=== PATIENT | female | born 1960 | race Caucasian/White ===

== ENCOUNTER 2019-08-24 15:51 | Observation (INO) | payer BC, SELFPAY ==
[2019-08-24] VITALS (8 sets, daily range): BP systolic 124–159; BP diastolic 71–90; PULSE 63–76; RESP 9–20; TEMP 36.1–36.5; O2SAT 95–99; BMI 40.3
--- NOTE | ~2019-08-24 | XR_ITS ---
EXAMINATION: XR chest 2V DATE: 08/24/2019 18:26 INDICATION: Chest pain and shortness of breath TECHNIQUE: PA and lateral views of the chest are obtained. COMPARISON: None available FINDINGS: The lungs are free of acute opacities. There is no pleural effusion or pneumothorax. The ca rdiomediastinal silhouette is normal. There is moderate thoracic spondylosis. Surgical clips in the r ight upper quadrant are likely from prior cholecystectomy. IMPRESSION: 1. No acute cardiopulmonary abnormality. Reviewed, dictated and finalized at location A.
--- NOTE | 2019-08-24 16:12 | ECG_ITS ---
Measurements Intervals [place] Rate: 71 P: 13 [place]: 159 QRS: 5 QRSD: 90 T: 22 QT: 369 QTc: 403 Interpretive Statements SINUS RHYTHM EARLY PRECORDIAL R/S TRANSITION LOW QRS VOLTAGE IN PRECORDIAL LEADS BASELINE ARTIFACT- I, III, AVL BORDERLINE ECG Electronically Signed On 08-24-2019 17:40:11 CDT by Mika Sullivan D.O.
[2019-08-24 16:27] LABS: Basophils Absolute Auto 0.1 K/mm3 (0.0-0.1); Eosinophils Percent Auto 0.2 % (0-4.4); Hematocrit 40.7 % (37.0-47.0); Hemoglobin 13.6 g/dL (12.0-15.0); Immature Granulocyte Absolute 0.02 K/mm3 (0.00-0.031); Immature Granulocyte Percent A 0.3 % (0-0.5); Lymphocytes Absolute Auto 1.05 K/mm3 (0.9-3.2); Lymphocytes Percent Auto 17.7 % (18.3-44.2); Mean Corpuscular HGB Conc 33.4 g/dl (32-36); Mean Corpuscular Hemoglobin 30.8 pg (26-34); Mean Corpuscular Volume 92.3 fl (80-100); Mean Platelet Volume 11.5 fl (7.4-10.4); Monocytes Absolute Auto 0.3 K/mm3 (0.1-0.6); Monocytes Percent Auto 4.4 % (2.6-8.5); Neutrophils Absolute Auto 4.5 K/mm3 (1.3-6.7); Neutrophils Percent Auto 76.4 % (45.5-73.1); Platelet Count Result 216 k/mm3 (150-375); Red Blood Count 4.41 M/mm3 (4.2-5.4); Red Cell Distribution Width 13.1 % (11.5-14.5); White Blood Count 5.9 K/mm3 (4.5-10.0)
[2019-08-24 16:34] LABS: Prothrombin Time 12.7 Seconds (11.1-14.7)
[2019-08-24 16:35] LABS: Partial Thromboplastin Time 23.3 SECONDS (22.3-36.8)
[2019-08-24 16:39] LABS: Blood Urea Nitrogen 21 mg/dL (7-17); Calcium 9.6 mg/dL (8.4-10.2); Carbon Dioxide 22 mmol/L (22-30); Chloride 107 mmol/L (98-107); Estimated CRCL calculation 64 ml/min; Estimated Glomerular Filt Rate 57; Glucose 107 mg/dL (65-105); Potassium 4.7 mmol/L (3.4-5.0); Sodium 136 mmol/L (137-145)
[2019-08-24 16:50] LABS: Troponin I < 0.012 ng/mL (0.000-0.034)
--- NOTE | 2019-08-24 18:31 | ED.GENADULT ---
HPI - General Adult General Chief complaint: Unspecified Stated complaint: HEART ISSUES, FATIGUED Time Seen by Provider: 08/24/19 18:31 History of Present Illness HPI narrative: Patient is a 59 y/o female complaining moderate fatigue and generalized weakness for about 1 week. There is no alleviating or exacerbating factor. She also has some nausea, but no vomiting. She has some intermittent left sided chest pain. She denies any fever or cough. Related Data Home Medications Medication Instructions Recorded Confirmed bupropion HCl 200 mg tablet,12 hr 200 mg PO BID tablet 01/15/19 08/24/19 sustained-release cholecalciferol (vitamin D3) 1,250 50,000 unit PO WEEKLY 01/15/19 08/24/19 mcg (50,000 unit) capsule lisinopril 20 mg tablet 20 mg PO DAILY 01/15/19 08/24/19 prednisone 20 mg tablet 20 mg PO DAILY 01/15/19 08/24/19 azithromycin 250 mg PO DAILY 08/24/19 08/24/19 sertraline 100 mg PO DAILY 08/24/19 08/24/19 Allergies Allergy/AdvReac Type Severity Reaction Status Date / Time Iodinated Contrast Media Allergy Unknown Verified 07/02/19 10:07 ioversol Allergy Unknown Unknown Verified 07/02/19 10:07 Contrast Media Allergy Severe HIVES, SOB Uncoded 07/02/19 10:07 Review of Systems Constitutional: Constitutional: Denies chills, Reports fatigue, Denies fever(s), Denies headache(s) and Reports weakness Eyes: Eyes: Denies blurry vision ENT: Denies headache(s) and Denies neck pain Cardiovascular: Cardiovascular: Reports chest pain and Denies dyspnea Respiratory: Respiratory: Denies cough and Denies dyspnea Gastrointestinal: Gastrointestinal: Denies abdominal pain, Denies diarrhea, Denies nausea and Denies vomiting Genitourinary: Genitourinary: Denies hematuria and Denies dysuria Musculoskeletal: Musculoskeletal: Denies back pain and Denies neck pain Neurologic: Denies headache(s) and Denies weakness PMFSH Past Medical History Medical History Acute non-recurrent maxillary sinusitis Allergic contact dermatitis due to plant Chest pain Chronic anxiety Chronic depression Essential (primary) hypertension Fatigue Fever GERD (gastroesophageal reflux disease) Insomnia Migraine without aura and responsive to treatment ERMELINDA on CPAP Restless legs syndrome Seasonal allergic rhinitis Tension headache, chronic Viral syndrome Vitamin D deficiency, unspecified Social History Social History Smoking status: Never smoker Alcohol intake: current Exam Const: General: no acute distress and well developed Orientation/consciousness: oriented to person, oriented to place, oriented to time and patient oriented x3 HENMT: Head: normocephalic Ears: external ears normal General nose exam: Normal external nose present Eyes: General: appearance normal, both eyes and all related structures Conjunctivae: conjunctivae normal Neck: Neck: normal visual inspection and full ROM Chest: Chest palpation & inspection: normal inspection of the chest and no tenderness Resp: Effort & Inspection: normal respiratory effort Auscultation: clear to auscultation bilaterally Cardio: Rate: regular rate Rhythm: regular rhythm GI: GI Palp: No abdominal tenderness and Yes Soft to palpation Skin: General skin exam: normal color and turgor normal Neuro: General: oriented to person, oriented to place, oriented to time and patient oriented x3 Cognition (Neuro): normal cognition Extrem: General: normal to inspection, full ROM and no pedal edema Psych: Appearance: grossly normal Mental Status: mental status grossly normal Affect: normal affect Course Consultations Consultation #1: Discussed with Dr. Gallardo (PCP), who recommends admitting patient for observation. Date: 08/24/19 Time: 19:37 Consultation #2: Discussed with Dr. Calero, who agrees to admit. Date: 08/24/19 Time: 20:25 Vital Signs Vital signs: Vital Signs Tempera
[2019-08-24 19:58] LABS: Troponin I < 0.012 ng/mL (0.000-0.034)
--- NOTE | 2019-08-24 22:19 | ADMGEN ---
This patient, Marilynn Chatterjee, was admitted to IMU Room 210-01 [id number]. Patient/family oriented to hospital policies and general routines including ID bracelet, bed and alarms, visiting hours, pain management, procedures, bathroom and other care routines, personal items, smoking policy, room service/diet, and visiting hours. Valuables list has been completed. Information on how to activate the Rapid Response Team has been discussed. Patient/Family are encouraged to report perceived risks to care and to ask questions if they do not understand what they are told or what they should do.
[2019-08-24 22:32] LABS: Troponin I < 0.012 ng/mL (0.000-0.034)
[2019-08-25] VITALS (7 sets, daily range): BP systolic 109–122; BP diastolic 55–77; PULSE 55–72; RESP 14–18; TEMP 36.4–36.6; O2SAT 96–98
--- NOTE | 2019-08-25 07:10 | PC.NURSE ---
DISPOSAL MAN STATUS PT. TRANSFERRED TO [facility]AL [facility] 6 VIA WC AT THIS TIME FROM IMU 210. REPORT RECEIVED FROM DERRELL WRIGHT IN IMU. PT IS A&OX3, DENIES CP OR SOB. STEADY GAIT. PLACED ON MONITOR IN [facility] 6. MONITOR SR. VSS. ORIENTED TO ROOM AND PLAN OF CARE. WILL CONTINUE TO MONITOR.
--- NOTE | 2019-08-25 09:52 | ECG_ITS ---
Measurements Intervals [place] Rate: 64 P: 17 [place]: 168 QRS: 18 QRSD: 88 T: 35 QT: 398 QTc: 412 Interpretive Statements SINUS RHYTHM EARLY PRECORDIAL R/S TRANSITION BORDERLINE ECG Electronically Signed On 08-25-2019 10:44:45 CDT by Mika Sullivan D.O.
--- NOTE | 2019-08-25 10:10 | PC.NURSE ---
DR. CAN HERE TO SEE PT. UPDATED ON PT. C/O L. UPPER CHEST DULL THROBBING PAIN OF 6-7/10 RADIATING TO BACK AND L. UPPER SHOULDER AREA. EKG COMPLETED, STAT TROPONIN SENT TO LAB. PT W/ VSS, SKIN WARM, DRY, PINK. NO SWEATING, NAUSEA. WILL MONITOR.
--- NOTE | 2019-08-25 10:17 | PM.IMHP ---
H&P: HPI History of Present Illness Chief complaint: chest pain Narrative: Marilynn Chatterjee is a 59 year old female with h/o HTN and anxiety who presented with fatigue and chest pain Patient was seen yesterday at her PCP office when was complaining of lack of energy and feeling extremely fatigued. She has been having upper resp/flu like symptoms for few days with low grade fever including last night. She was sent to ER for further evaluation. She was tested for COVID which was negative. She also reported chest pain that is dull and localized to one spot in her chest on the left side with no radiation. She has separate left shoulder pain that she had for long time. SHe had stress test lonig time ago prior to gallbalder surgery. She quit smoking 10 years ago. Review of Systems Review of Systems: All systems reviewed & are unremarkable except as noted in HPI and below Constitutional: Constitutional: Denies fatigue and Denies headache(s) Eyes: Eyes: Denies blurry vision ENT: Reports Normal hearing present and Denies headache(s) Cardiovascular: Cardiovascular: Denies chest pain, Denies diaphoresis, Denies pedal edema, Denies leg edema, Denies lightheadedness, Denies palpitations and Denies dyspnea Respiratory: Respiratory: Denies cough and Denies dyspnea Gastrointestinal: Gastrointestinal: Denies abdominal pain Musculoskeletal: Musculoskeletal: Denies back pain Neurologic: Reports Normal hearing present and Denies headache(s) Psychiatric: Psychiatric: Denies anxiety Endocrine: Endocrine: Denies fatigue and Denies palpitations PMFSH Past Medical History Medical History Acute non-recurrent maxillary sinusitis Allergic contact dermatitis due to plant Chest pain Chronic anxiety Chronic depression Essential (primary) hypertension Fatigue Fever GERD (gastroesophageal reflux disease) Insomnia Migraine without aura and responsive to treatment ERMELINDA on CPAP Restless legs syndrome Seasonal allergic rhinitis Tension headache, chronic Viral syndrome Vitamin D deficiency, unspecified Social History Social History Smoking packs per day: 0.5 Smoking cigarettes per day: 10.0 Years smoked: 25 Smoking pack-years: 12.50 Smoking status: Former smoker Alcohol intake: current Drinks per week: 1 Substance use: never Gender identity (if verbalized by the patient): Female Spiritual care concerns: No Meds Home Medications and Allergies Home Medications Medication Instructions Recorded Confirmed Type bupropion HCl 200 mg tablet,12 hr 200 mg PO BID tablet 01/15/19 08/24/19 History sustained-release cholecalciferol (vitamin D3) 1,250 50,000 unit PO WEEKLY 01/15/19 08/24/19 History mcg (50,000 unit) capsule lisinopril 20 mg tablet 20 mg PO DAILY 01/15/19 08/24/19 History alprazolam 0.25 mg tablet 0.25 mg PO TID PRN #90 tablet 05/25/19 08/24/19 Rx azithromycin 250 mg PO DAILY 08/24/19 08/24/19 History prednisone 10 mg PO DAILY 08/24/19 08/24/19 History sertraline 100 mg PO DAILY 08/24/19 08/24/19 History Allergies Allergy/AdvReac Type Severity Reaction Status Date / Time Iodinated Contrast Media Allergy Unknown Verified 07/02/19 10:07 ioversol Allergy Unknown Unknown Verified 07/02/19 10:07 Contrast Media Allergy Severe HIVES, SOB Uncoded 07/02/19 10:07 Vital Signs Vital Signs - 24 hr 08/24/19 16:08 08/24/19 17:40 08/24/19 18:41 Temperature 36.1 C L Pulse Rate 73 76 Respiratory Rate 16 Blood Pressure 132/90 Pulse Oximetry 98 99 08/24/19 19:01 08/24/19 20:41 08/24/19 20:46 Temperature Pulse Rate 68 71 75 Respiratory Rate 12 12 19 Blood Pressure 124/78 150/89 H 140/77 Pulse Oximetry 95 99 08/24/19 21:01 08/24/19 22:00 08/25/19 00:00 Temperature 36.5 C Pulse Rate 63 71 72 Respiratory Rate 9 L 20 Blood Pressure 159/82 H 138/71 Pulse Oximetry 96 9
--- NOTE | 2019-08-25 10:25 | PM.DS ---
DS: Admitting Diagnosis Admitting Diagnosis Admitting Diagnosis: Chest pain, unspecified DS: Discharge Diagnosis Discharge Diagnosis (1) Chest pain: Qualifiers: Chest pain type: unspecified Qualified Code(s): R07.9 - Chest pain, unspecified Code(s): R07.9 - Chest pain, unspecified Status: Acute Assessment and Plan: 59 y/o with h/o anxiety, HTM, ex smoker quit 10 years ago who presented with fatigue and chest pain in the setting of upper respiratory infection and low grade fever Chest pain is atypical for angina She has ruled out for AR by EKG and troponin that has been negative X3 She is stable for discharge from cardiac standpoint. Will arrange for follow up and plan stress testing in out patient setting once she recovers from the viral illness and once her symptoms of fatigue and cough improve She prefers to stay local. Will arrange for follow up with Dr Calero in [place] office. (2) Viral syndrome: Code(s): B34.9 - Viral infection, unspecified Status: Acute Assessment and Plan: on Zpac per PCP. Negative CPR for COVID (3) Essential (primary) hypertension: Code(s): I10 - Essential (primary) hypertension Status: Acute Assessment and Plan: Continue Lisinopril as at home. DS: Summary Time Spent with Patient Time attestation: Total time spent providing and/or coordinating discharge services: Exam Const: General: no acute distress Eyes: Sclera: sclerae normal Neck: Neck: no JVD Carotids: no bruits Resp: Effort & Inspection: normal respiratory effort Auscultation: clear to auscultation bilaterally Cardio: Rate: regular rate and not tachycardic Rhythm: regular rhythm Heart sounds: no gallops, no murmurs and no rubs Skin: General skin exam: normal color Neuro: Cranial nerves: Yes Normal hearing present Speech: normal speech Extrem: General: normal to inspection and no edema Psych: Affect: normal affect DS: Data Data Completed and Pending Labs on day of discharge: Labs from last 24 hours 08/25/19 08/24/19 08/24/19 10:06 22:02 19:27 WBC RBC Hgb Hct MCV MCH MCHC RDW Plt Count MPV Immature Gran % (Auto) Neut % (Auto) Lymph % (Auto) Taylor % (Auto) Eos % (Auto) Baso % (Auto) Lymph # (Auto) Taylor # (Auto) Eos # (Auto) Baso # (Auto) Abs Immat Gran (auto) Absolute Neuts (auto) Absolute Nucleated RBC Nucleated RBC % PT INR APTT Sodium Potassium Chloride Carbon Dioxide BUN Creatinine Estim Creat Clear Calc Estimated GFR Glucose Calcium Troponin I Pending < 0.012 < 0.012 TSH 08/24/19 08/24/19 08/24/19 16:18 16:18 16:18 WBC RBC Hgb Hct MCV MCH MCHC RDW Plt Count MPV Immature Gran % (Auto) Neut % (Auto) Lymph % (Auto) Taylor % (Auto) Eos % (Auto) Baso % (Auto) Lymph # (Auto) Taylor # (Auto) Eos # (Auto) Baso # (Auto) Abs Immat Gran (auto) Absolute Neuts (auto) Absolute Nucleated RBC Nucleated RBC % PT 12.7 INR 1.0 APTT 23.3 Sodium 136 L Potassium 4.7 Chloride 107 Carbon Dioxide 22 BUN 21 H Creatinine 1.00 Estim Creat Clear Calc 64 Estimated GFR 57 L Glucose 107 H Calcium 9.6 Troponin I < 0.012 TSH 1.220 08/24/19 16:18 WBC 5.9 RBC 4.41 Hgb 13.6 Hct 40.7 MCV 92.3 MCH 30.8 MCHC 33.4 RDW 13.1 Plt Count 216 MPV 11.5 H Immature Gran % (Auto) 0.3 Neut % (Auto) 76.4 H Lymph % (Auto) 17.7 L Taylor % (Auto) 4.4 Eos % (Auto) 0.2 Baso % (Auto) 1.0 Lymph # (Auto) 1.05 Taylor # (Auto) 0.3 Eos # (Auto) 0.0 Baso # (Auto) 0.1 Abs Immat Gran (auto) 0.02 Absolute Neuts (auto) 4.5 Absolute Nucleated RBC 0.0 Nucleated RBC % 0.0 PT INR APTT Sodium Potassium Chloride Carbon Dioxide BUN Creatinine Estim Creat Clear Ca
[2019-08-25 10:36] LABS: Troponin I < 0.012 ng/mL (0.000-0.034)
== END 2019-08-25 11:43 | disposition home or self-care (01) ==
LOC: ANHED 20:39 → ANHIMU 22:09 → ANHCPC 08-25 10:27 → ANHIMU 08-27 08:53
PROVIDERS: Emergency Medicine; Admitting Provider Specialist; Emergency Provider Emergency Medicine; PCP Family Medicine; Visit Provider Internal Medicine
DX: R07.9 Chest pain, unspecified (principal); B34.9 Viral infection, unspecified; R53.1 Weakness; G47.33 Obstructive sleep apnea (adult) (pediatric); I10 Essential (primary) hypertension; K21.9 Gastro-esophageal reflux disease without esophagitis; Z87.891 Personal history of nicotine dependence
CPT/HCPCS: 36415; 71046; 80048; 84443; 84484; 85025; 85610; 85730; 93005; 99285; G0378

== ENCOUNTER 2019-09-01 10:55 | Outpatient (CLI) | payer BC, SELFPAY ==
[2019-09-01 11:50] LABS: Basophils Absolute Auto 0.1 K/mm3 (0.0-0.1); Basophils Percent Auto 1.4 % (0.2-1.2); Eosinophils Absolute Auto 0.2 K/mm3 (0-0.3); Eosinophils Percent Auto 4.7 % (0-4.4); Hematocrit 42.6 % (37.0-47.0); Hemoglobin 14.1 g/dL (12.0-15.0); Immature Granulocyte Absolute 0.01 K/mm3 (0.00-0.031); Immature Granulocyte Percent A 0.2 % (0-0.5); Lymphocytes Absolute Auto 1.18 K/mm3 (0.9-3.2); Lymphocytes Percent Auto 27.8 % (18.3-44.2); Mean Corpuscular HGB Conc 33.1 g/dl (32-36); Mean Corpuscular Hemoglobin 30.8 pg (26-34); Mean Platelet Volume 11.8 fl (7.4-10.4); Monocytes Absolute Auto 0.3 K/mm3 (0.1-0.6); Monocytes Percent Auto 7.3 % (2.6-8.5); Neutrophils Absolute Auto 2.5 K/mm3 (1.3-6.7); Neutrophils Percent Auto 58.6 % (45.5-73.1); Platelet Count Result 231 k/mm3 (150-375); Red Blood Count 4.58 M/mm3 (4.2-5.4); Red Cell Distribution Width 13.1 % (11.5-14.5); White Blood Count 4.2 K/mm3 (4.5-10.0)
[2019-09-01 11:58] LABS: Alanine Aminotransferase 25 U/L (4-35); Albumin Level 4.1 g/dL (3.5-5.1); Alkaline Phosphatase 61 U/L (38-126); Amylase 79 U/L (30-110); Aspartate Amino Transferase 24 U/L (14-36); Bilirubin,Total 0.4 mg/dL (0.2-1.3); Blood Urea Nitrogen 15 mg/dL (7-17); Calcium 9.4 mg/dL (8.4-10.2); Carbon Dioxide 27 mmol/L (22-30); Chloride 104 mmol/L (98-107); Estimated Glomerular Filt Rate 57; Glucose 141 mg/dL (65-105); Lipase 50 U/L (23-300); Potassium 4.3 mmol/L (3.4-5.0); Sodium 137 mmol/L (137-145)
[2019-09-01 12:47] LABS: Hepatitis B Surface Antigen Negative (Negative)
[2019-09-01 12:53] LABS: HAV RESULT Negative (Negative); Hepatitis B Core IgM Result Negative (Negative)
[2019-09-01 13:05] LABS: Hepatitis C Virus Antibody Negative (Negative)
== END 2019-09-01 10:56 | disposition home or self-care (01) ==
PROVIDERS: PCP Family Medicine; Visit Provider Family Medicine
DX: R10.9 Unspecified abdominal pain (principal)
CPT/HCPCS: 36415; 80053; 80074; 82150; 83690; 85025

== ENCOUNTER 2019-09-08 15:37 | Outpatient (CLI) | payer BC, SELFPAY ==
--- NOTE | ~2019-09-08 | CT_ITS ---
EXAMINATION: CT abdomen pelvis wo con DATE: 09/08/2019 16:11 INDICATION: Abdominal pain. TECHNIQUE: Computed tomography (CT) of the abdomen and pelvis was performed without intravenous contr ast. The dose-length product was 1304.48 mGy-cm. Automated exposure control and iterative reconstruct ion technique were employed. COMPARISON: CT dated 06/19/2013 FINDINGS: Lung bases are unremarkable. No significant pleural or pericardial effusion. Heart size is normal. Stable bilateral adrenal adenomas. Fatty infiltration of the liver. The spleen, pancreas, kid neys are unremarkable. There are cholecystectomy clips. The spleen, pancreas and kidneys are unremark able. Nonobstructive bowel gas pattern. Normal appendix. Colonic diverticulosis without evidence for diverticulitis. No abnormal pelvic masses or fluid collections. Uterus is surgically absent. Bladder is unremarkable. No significant vascular abnormality. No lymphadenopathy. Mild lower thoracic and lum bar spondylosis. IMPRESSION: 1. No acute abdominal abnormality. 2: Stable bilateral adrenal adenomas. 3: Hepatic steatosis. Reviewed, dictated and finalized at location A.
--- NOTE | ~2019-09-08 | CT_ITS ---
EXAMINATION: CT chest high resolution wo nj DATE: 09/08/2019 16:10 INDICATION: Chest and abdominal pain TECHNIQUE: Computed tomography (CT) of the chest was performed without intravenous contrast. The dose -length product was 571.20 mGy-cm. Automated exposure control and iterative reconstruction technique were employed. COMPARISON: None FINDINGS: Mild atherosclerosis without aneurysm. No thoracic lymphadenopathy. Thyroid gland is unrema rkable. Heart size is normal. No significant pleural or pericardial effusion. There are bilateral adr enal adenomas. There is right upper lobe atelectasis/scarring. There is left lower lobe atelectasis. No focal pneumonia. Mild emphysema. No pneumothorax. No endobronchial lesions. Mild thoracic spondylo sis with dextrocurvature of the thoracic spine. IMPRESSION: 1. No acute cardiopulmonary disease. 2: Linear opacities right upper and left lower lobes, most likely atelectasis/scarring. Reviewed, dictated and finalized at location A. IMPRESSION: 1. No acute cardiopulmonary disease. 2: Linear opacities right upper and left lower lobes, most likely atelectasis/ scarring.
== END 2019-09-08 15:38 | disposition home or self-care (01) ==
LOC: ANHIMG 15:38
PROVIDERS: PCP Family Medicine; Visit Provider Family Medicine
DX: R07.9 Chest pain, unspecified (principal); R63.4 Abnormal weight loss; R10.9 Unspecified abdominal pain; R91.8 Other nonspecific abnormal finding of lung field; D35.02 Benign neoplasm of left adrenal gland; D35.01 Benign neoplasm of right adrenal gland; K76.0 Fatty (change of) liver, not elsewhere classified
CPT/HCPCS: 71250; 74176

== ENCOUNTER 2019-09-22 00:56 | Outpatient (CLI) | payer BC, SELFPAY ==
[2019-09-22 19:25] LABS: SARS-CoV-2 RNA PCR Negative
== END 2019-09-22 00:57 | disposition home or self-care (01) ==
LOC: ANHCOVIDDT 00:56
PROVIDERS: PCP Family Medicine; Visit Provider Specialist
DX: Z01.812 Encounter for preprocedural laboratory examination (principal); Z11.59 Encounter for screening for other viral diseases
CPT/HCPCS: 87635; C9803; U0003

== ENCOUNTER 2019-09-24 05:29 | Day surgery (SDC) | payer BC, SELFPAY ==
[2019-09-23 13:43] VITALS: BMI 39.3
[2019-09-24] VITALS (8 sets, daily range): BP systolic 99–126; BP diastolic 66–87; PULSE 76–90; RESP 10–16; TEMP 36.9–37.1; O2SAT 93–97
[2019-09-24 12:46] LABS: Basophils Absolute Auto 0.1 K/mm3 (0.0-0.1); Basophils Percent Auto 0.6 % (0.2-1.2); Eosinophils Percent Auto 0.3 % (0-4.4); Hemoglobin 13.2 g/dL (12.0-15.0); Immature Granulocyte Absolute 0.06 K/mm3 (0.00-0.031); Immature Granulocyte Percent A 0.7 % (0-0.5); Lymphocytes Absolute Auto 0.95 K/mm3 (0.9-3.2); Lymphocytes Percent Auto 10.7 % (18.3-44.2); Mean Corpuscular Volume 93.9 fl (80-100); Mean Platelet Volume 11.3 fl (7.4-10.4); Monocytes Absolute Auto 0.3 K/mm3 (0.1-0.6); Monocytes Percent Auto 3.8 % (2.6-8.5); Neutrophils Absolute Auto 7.5 K/mm3 (1.3-6.7); Neutrophils Percent Auto 83.9 % (45.5-73.1); Platelet Count Result 239 k/mm3 (150-375); Red Blood Count 4.26 M/mm3 (4.2-5.4); Red Cell Distribution Width 13.2 % (11.5-14.5); White Blood Count 8.9 K/mm3 (4.5-10.0)
--- NOTE | 2019-09-24 12:48 | SUR.PREOP ---
Patient arrived to [facility] ambulatory from registration. Patient verified allergy to contrast. Final dose of benadryl and prednisone taken by patient upon arrival to [facility]. Patient states she has taken previous doses as ordered at home.
[2019-09-24 12:57] LABS: Anion Gap 11.8 mmol/L (7-16); Blood Urea Nitrogen 20 mg/dL (7-17); Carbon Dioxide 24 mmol/L (22-30); Chloride 107 mmol/L (98-107); Estimated CRCL calculation 58 ml/min; Estimated Glomerular Filt Rate 51; Glucose 107 mg/dL (65-105); Potassium 4.8 mmol/L (3.4-5.0); Sodium 138 mmol/L (137-145)
[2019-09-24 13:03] LABS: INR 1.1; Prothrombin Time 13.4 Seconds (11.1-14.7)
--- NOTE | 2019-09-24 13:18 | PM.IMHP ---
H&P: HPI History of Present Illness Chief complaint: Chest Pain Narrative: Marilynn Chatterjee is a 59 year old female With history of hypertension, history of dyslipidemia was in the hospital with chest pain she had a stress test as an outpatient which showed significant chest pain with exertion but her nuclear scan was unremarkable. Due to recurrent episode of chest pain she was at that time sent to the hospital cardiac enzymes are negative, and CT was negative for PE. She continued to have chest pain more with exertion, she will be admitted to the hospital for elective cardiac catheterization for definitive diagnosis of coronary disease [facility] Past Medical History Medical History (Updated 08/31/19 @ 11:10 by Tony Gallardo MD) Abdominal pain Acute non-recurrent maxillary sinusitis Allergic contact dermatitis due to plant Chest pain Chronic anxiety Chronic depression Essential (primary) hypertension Fatigue Fever GERD (gastroesophageal reflux disease) Insomnia Migraine without aura and responsive to treatment ERMELINDA on CPAP Restless legs syndrome Seasonal allergic rhinitis Tension headache, chronic Viral syndrome Vitamin D deficiency, unspecified Weight loss, non-intentional Social History Social History Smoking packs per day: 0.5 Smoking cigarettes per day: 10.0 Years smoked: 20 Smoking pack-years: 10.00 Smoking status: Former smoker Tobacco type: cigarettes Second hand tobacco smoke exposure: No Smoking end date: 03/04/09 Alcohol intake: current Drinks per week: 1 Substance use: never Substance use type: does not use Living arrangements: alone Gender identity (if verbalized by the patient): Female Spiritual care concerns: No Meds Home Medications and Allergies Home Medications Medication Instructions Recorded Confirmed Type bupropion HCl 200 mg tablet,12 hr 200 mg PO BID tablet 01/15/19 09/23/19 History sustained-release cholecalciferol (vitamin D3) 1,250 50,000 unit PO WEEKLY 01/15/19 09/23/19 History mcg (50,000 unit) capsule lisinopril 20 mg tablet 20 mg PO DAILY 01/15/19 09/23/19 History alprazolam 0.25 mg tablet 0.25 mg PO TID PRN #90 tablet 05/25/19 09/23/19 Rx prednisone 10 mg PO DAILY 08/24/19 09/23/19 History sertraline 100 mg PO DAILY 08/24/19 09/23/19 History indomethacin 25 mg PO DAILY 09/23/19 09/23/19 History pantoprazole 40 mg PO DAILY 09/23/19 09/23/19 History simvastatin 20 mg PO DAILY 09/23/19 09/23/19 History Allergies Allergy/AdvReac Type Severity Reaction Status Date / Time Iodinated Contrast Media Allergy Unknown Verified 07/02/19 10:07 ioversol Allergy Unknown Unknown Verified 07/02/19 10:07 Contrast Media Allergy Severe HIVES, SOB Uncoded 07/02/19 10:07 Vital Signs Vital Signs - 24 hr 09/24/19 12:38 Temperature 36.9 C Pulse Rate 90 Respiratory Rate 13 Blood Pressure 126/87 Pulse Oximetry 97 Exam Narrative: Exam Narrative: Awake alert oriented x3 not in acute distress Neck is supple no obvious JVD, no carotid bruit Chest: Good air entry bilaterally, lungs are clear to auscultation and percussion bilaterally Cardiovascular: Regular rate and rhythm, 2/6 systolic murmur noted left sternal border Abdomen: Soft nontender bowel sounds positive Extremities: No edema has good pulses distally bilaterally H&P: Results Labs Labs: Short CBC 09/24/19 Range/Units 12:23 WBC 8.9 (4.5-10.0) K/mm3 Hgb 13.2 (12.0-15.0) g/dL Hct 40.0 (37.0-47.0) % Plt Count 239 (150-375) k/mm3 [facility] 09/24/19 12:23 Sodium 138 Potassium 4.8 Chloride 107 Carbon Dioxide 24 BUN 20 H Creatinine 1.10 H Glucose 107 H Calcium 9.0 Assessment and Plan Assessment and plan (1) Chest pain: Qualifiers: Chest pain type: unspecified Qualified Code(s): R07.9 - Chest pain, unspecified Code(s): R07.9 - Chest pain, unspecified Status: Acute
--- NOTE | 2019-09-24 13:20 | WPDMODSED ---
Moderate Sedation Note-Pt Data Patient Data Allergies Allergy/AdvReac Type Severity Reaction Status Date / Time Iodinated Contrast Media Allergy Unknown Verified 07/02/19 10:07 ioversol Allergy Unknown Unknown Verified 07/02/19 10:07 Contrast Media Allergy Severe HIVES, SOB Uncoded 07/02/19 10:07 Home Medications Medication Instructions Recorded Confirmed Type bupropion HCl 200 mg tablet,12 hr 200 mg PO BID tablet 01/15/19 09/23/19 History sustained-release cholecalciferol (vitamin D3) 1,250 50,000 unit PO WEEKLY 01/15/19 09/23/19 History mcg (50,000 unit) capsule lisinopril 20 mg tablet 20 mg PO DAILY 01/15/19 09/23/19 History alprazolam 0.25 mg tablet 0.25 mg PO TID PRN #90 tablet 05/25/19 09/23/19 Rx prednisone 10 mg PO DAILY 08/24/19 09/23/19 History sertraline 100 mg PO DAILY 08/24/19 09/23/19 History indomethacin 25 mg PO DAILY 09/23/19 09/23/19 History pantoprazole 40 mg PO DAILY 09/23/19 09/23/19 History simvastatin 20 mg PO DAILY 09/23/19 09/23/19 History Current Medications: Active Medications Sodium Chloride (Normal Saline Iv) 500 mls @ 100 mls/hr IV CONT .Q5H VIVEK Sedation/Anesthesia: No previous sedation/anesthesia problems (including family history). [facility] Past Medical History Medical History (Updated 08/31/19 @ 11:10 by Tony Gallardo MD) Abdominal pain Acute non-recurrent maxillary sinusitis Allergic contact dermatitis due to plant Chest pain Chronic anxiety Chronic depression Essential (primary) hypertension Fatigue Fever GERD (gastroesophageal reflux disease) Insomnia Migraine without aura and responsive to treatment ERMELINDA on CPAP Restless legs syndrome Seasonal allergic rhinitis Tension headache, chronic Viral syndrome Vitamin D deficiency, unspecified Weight loss, non-intentional Social History Social History Smoking packs per day: 0.5 Smoking cigarettes per day: 10.0 Years smoked: 20 Smoking pack-years: 10.00 Smoking status: Former smoker Tobacco type: cigarettes Second hand tobacco smoke exposure: No Smoking end date: 01/01/10 Alcohol intake: current Drinks per week: 1 Substance use: never Substance use type: does not use Living arrangements: alone Gender identity (if verbalized by the patient): Female Spiritual care concerns: No Mod Sed Physical Exam Physical Exam Pre Procedural Exam: Normal: Appearance, Eyes, Ears, Nose, Neck, Throat, Airway, Lungs, Heart Size, Heart Rate, Heart Rhythm, Neuro Exam, Abdomen, Liver, Kidneys, Spleen, Breasts, Genitalia, Extremities and Skin Hours since solid foods: 8 Hours since liquid intake: 8 Internal Medicine - PN: Obj Da Vital Signs Vital Signs: Vital Signs - 24 hr 09/24/19 12:38 Temperature 36.9 C Pulse Rate 90 Respiratory Rate 13 Blood Pressure 126/87 Pulse Oximetry 97 Meds/Results Medications: Active Medications Generic Name Dose Route Start Last Admin Trade Name Freq PRN Reason Stop Dose Admin Sodium Chloride 500 mls @ 100 mls/hr 09/24/19 06:15 Normal Saline Iv IV CONT .Q5H VIVEK Labs CBC & Chem 7: 09/24/19 12:23 09/24/19 12:23 Labs: Laboratory Results - last 24 hr 09/24/19 09/24/19 09/24/19 12:23 12:23 12:23 WBC 8.9 RBC 4.26 Hgb 13.2 Hct 40.0 MCV 93.9 MCH 31.0 MCHC 33.0 RDW 13.2 Plt Count 239 MPV 11.3 H Immature Gran % (Auto) 0.7 H Neut % (Auto) 83.9 H Lymph % (Auto) 10.7 L Stone % (Auto) 3.8 Eos % (Auto) 0.3 Baso % (Auto) 0.6 Lymph # (Auto) 0.95 Stone # (Auto) 0.3 Eos # (Auto) 0.0 Baso # (Auto) 0.1 Abs Immat Gran (auto) 0.06 H Absolute Neuts (auto) 7.5 H Absolute Nucleated RBC 0.0 Nucleated RBC % 0.0 PT 13.4 INR 1.1 Sodium 138 Potassium 4.8 Chloride 107 Carbon Dioxide 24 Anion Gap 11.8 BUN 20 H Creatinine 1.10 H Estim Creat Clear Calc 58 Estimated G
--- NOTE | 2019-09-24 14:11 | P.PCNCC_ITS ---
Cardiac Cath Procedure Note Date of procedure:: 09/24/19 Performing physician:: Lionel Calero MD Procedure: 1. Left heart catheterization, selective coronary angiogram. 2. Left ventricular angiogram. 3. Conscious sedation. 4. Angio-Seal device for arterial hemostasis Verifying Machine Operator: Dr. Lionel Calero Complications: None. Sedation: Conscious sedation, local anesthesia, using 1 mg of Versed said, 25 mcg of fentanyl, and using 1% lidocaine for local anesthesia. Technique: After informed consent was obtained from patient, was brought to the director of cardiac cath lab, put in the director of cardiac cath lab table, prepped and draped in usual sterile fashion. Five Indian sheath was inserted into the right common femoral artery, through the sheath 5 Indian JL4 catheter inserted, advanced to the left coronary artery, left coronary artery angiogram was obtained. The catheter was exchanged over guidewire into a 5 Indian JR4 catheter, advanced to the right coronary artery, right coronary artery angiogram was obtained. The catheter then was exchanged over guidewire into this 5 Indian pigtail catheter, advanced to left ventricle, left ventricular angiogram was obtained. The catheter then was pulled, the sheath was pulled applying Angio-Seal device for arterial hemostasis. Patient tolerated the procedure no complication, taken fro m the director of cardiac cath lab to his room in stable condition stable vital signs. Hemodynamics: aortic pressure 120/60 . LV pressure 121/00 with LVEDP of 5 mmHg Angiographic findings: Left main: Medium size artery no significant disease or stenosis. Lad medium size artery showed no significant disease or stenosis Left circumflex artery, medium size artery, no significant disease or stenosis. RCA: Dominant vessel, showed no significant disease or stenosis LV: Normal size left ventricle with normal left ventricular systolic function. Summary: Mild coronary artery disease, normal left ventricular systolic function. Recommendation: Maximum medical treatment. Risk factor modification.
--- NOTE | 2019-09-24 18:04 | SUR.PHASEII ---
END PHASE II RECOVERY. DISCHARGE INSTRUCTIONS GIVEN AND REVIEWED W/ PT. ALL QUESTIONS ANSWERED. VOICED UNDERSTANDING. R. GROIN SITE WITHOUT CHANGE. DRESSING C/D/I. DISCHARGED HOME, OUT VIA WC WITH ALL PERSONAL BELONGINGS AND DISCHARGE PACKET TO FRIENDS WAITING CAR. NO DISTRESS NOTED AT TIME OF DISCHARGE. VOICES NO C/O.
== END 2019-09-24 18:04 | disposition home or self-care (01) ==
PROVIDERS: PCP Family Medicine; Visit Provider Specialist
PROC: 4A023N7 Measurement of Cardiac Sampling and Pressure, Left Heart, Percutaneous Approach (ICD-10-PCS; CPT 93452; principal; 2019-09-24 13:30)
DX: R07.9 Chest pain, unspecified (principal); R94.39 Abnormal result of other cardiovascular function study; G47.33 Obstructive sleep apnea (adult) (pediatric); E55.9 Vitamin D deficiency, unspecified; K21.9 Gastro-esophageal reflux disease without esophagitis; F41.8 Other specified anxiety disorders; Z87.891 Personal history of nicotine dependence
CPT/HCPCS: 36415; 80048; 85025; 85610; 93458; C1760; C1887; C1894; G0269; J1644; J2250; J3010; J7040

== ENCOUNTER → 2020-03-05 10:43 | Outpatient (CLI) | payer BC, SELFPAY ==
--- NOTE | ~2020-03-05 | US_ITS ---
EXAMINATION: US carotid duplex BI DATE: 03/05/2020 11:22 INDICATION: Unspecified visual disturbance, vertigo TECHNIQUE: Grayscale, color Doppler, and pulsed Doppler images of the cervical carotid arteries were obtained. The degree of vessel stenosis is placed in one of the following categories: normal, <50%, 5 0-69%, >=70% but less than near-occlusion, near-occlusion, or total occlusion. Note that percent sten osis relative to normal distal artery lumen diameter is indirectly measured from velocity measurement s as described by Madan, et al. Radiology 2003; [id number]:[id number]. COMPARISON: None. FINDINGS: RIGHT: The right common carotid artery (CCA) peak systolic velocity (PSV) is 110 cm/s. The right internal ca rotid artery (ICA) PSV is 83 cm/s. The right ICA end-diastolic velocity (EDV) is 23 cm/s. The right I CA/CCA PSV ratio is 0.7. Grayscale and color Doppler images yield an estimate of less than 50% diamet er reduction from plaque in the ICA. The external carotid artery (ECA) PSV is 111 cm/s. There is ante grade flow in the right vertebral artery. LEFT: The left CCA PSV is 109 cm/s. The left ICA PSV is 116 cm/s. The left ICA EDV is 39 cm/s. The left ICA /CCA PSV ratio is 1.1. Grayscale and color Doppler images yield an estimate of less than 50% diameter reduction from plaque in the ICA. The ECA PSV is 109 cm/s. There is antegrade flow in the left verte bral artery. IMPRESSION: 1. <50% stenosis in the right internal carotid artery. 2. <50% stenosis in the left internal carotid artery. Reviewed, dictated and finalized at location A. SITOLOGIST
== END ==
PROVIDERS: PCP Family Medicine; Visit Provider Family Medicine
DX: H53.9 Unspecified visual disturbance (principal); I65.23 Occlusion and stenosis of bilateral carotid arteries
CPT/HCPCS: 93880

== ENCOUNTER 2020-07-06 09:22 | Outpatient (CLI) | payer BC, SELFPAY ==
--- NOTE | ~2020-07-06 | MM_ITS ---
EXAMINATION: MM screening nigel BI w vahid HISTORY: Screening TECHNIQUE: Craniocaudal and mediolateral oblique 3-D tomosynthesis images were obtained and synthetic 2-D images were generated. CAD analysis was submitted and interpreted. COMPARISON: Comparison to multiple prior studies sequentially, with oldest reviewed study dated 09/22. BREAST PARENCHYMAL COMPOSITION: The breasts are almost entirely fatty. FINDINGS: There is no evidence of suspicious mass, calcification, or architectural distortion to sugg est malignancy in either breast. There has been no suspicious interval change. IMPRESSION: 1. No mammographic evidence of malignancy. 2. Recommend routine screening mammography in one year. BI-RADS Category 1: Negative Reviewed, dictated and finalized at location A.
== END 2020-07-06 09:23 | disposition home or self-care (01) ==
PROVIDERS: PCP Family Medicine; Visit Provider Obstetrics & Gynecology
DX: Z12.31 Encounter for screening mammogram for malignant neoplasm of breast (principal)
CPT/HCPCS: 77063; 77067

== ENCOUNTER 2023-01-30 12:33 | Outpatient (CLI) | payer OTHER, SELFPAY ==
--- NOTE | ~2023-01-30 | XR_ITS ---
Left Knee Technique: AP, lateral, and sunrise views were obtained. Clinical History: Pain Findings: No fracture or dislocation is seen. Osseous alignment is anatomic. Minimal degenerative spu rring is noted. Soft tissues are unremarkable. No joint effusion is seen. Impression: Minimal degenerative spurring. Reviewed, dictated and finalized at [facility]. FICIAL FLOWERS STARCHER Impression: Minimal degenerative spurring.
--- NOTE | ~2023-01-30 | XR_ITS ---
Lumbosacral Spine: AP and lateral views Clinical History: Pain Findings: The normal lordotic curve is maintained. The vertebral bodies and posterior elements are i ntact. The intervertebral disc spaces are preserved. Kzck-uv-kumlpqur facet joint degenerative cage es are present throughout the lumbar spine. The sacroiliac joints are normally outlined. Impression: Ookd-ig-rqckdsqa facet arthropathy throughout the lumbar spine. Reviewed, dictated and finalized at location M. D PROPELLANT PROCESSOR Impression: Cogk-wr-qxulvsyb facet arthropathy throughout the lumbar spine.
== END 2023-01-30 12:34 | disposition home or self-care (01) ==
PROVIDERS: PCP Family Medicine; Visit Provider Family Medicine
DX: M25.562 Pain in left knee (principal); G89.29 Other chronic pain; M54.50 Low back pain, unspecified
CPT/HCPCS: 72110; 73564

== ENCOUNTER 2023-04-02 01:25 | Day surgery (SDC) | payer OTHER, SELFPAY ==
[2023-03-06 11:23] VITALS: BMI 37.8
--- NOTE | 2023-03-29 12:38 | SUR.PREOP ---
Patient called regarding upcoming procedure. Reviewed preop instructions, appointment times, and procedure prep.
[2023-04-02 10:31] VITALS: BP 99/55; PULSE 78; RESP 18; TEMP 36.3; O2SAT 97
[2023-04-02] MEDS: LACTATED RINGERS 1,000 ML 150 ML IV CONT (10:46)
--- NOTE | 2023-04-02 11:01 | WPDANESEPPF ---
Anes - Initial Pre Proc Eval Procedure: Operation Date: 04/02/23 11:30 Proposed Procedures p Screening Colonoscopy - Rhoit Umanzor MD Date/Time: 04/02/23 11:01 Surgeon: Rohit Umanzor MD Pre Op Diagnosis: neoplasm screening Patient Data Age: 63 Gender: F Height: 1.63 m Weight: 102.4 kg Last Vital Signs Temp 97.4 F L 04/02/23 10:31 Pulse 78 04/02/23 10:31 Resp 18 04/02/23 10:31 BP 99/55 L 04/02/23 10:31 Pulse Ox 97 04/02/23 10:31 O2 Del Method Room Air 04/02/23 10:31 Allergies Allergy/AdvReac Type Severity Reaction Status Date / Time Iodinated Contrast Media Allergy Unknown Unknown Verified 04/02/23 10:30 ioversol Allergy Unknown Unknown Verified 04/02/23 10:30 Contrast Media Allergy Severe HIVES, SOB Uncoded 04/02/23 10:30 Home Medications Medication Instructions Recorded Confirmed Type cyanocobalamin (vitamin B-12) 1,000 mcg PO DAILY 06/15/20 03/06/23 History 1,000 mcg tablet alprazolam 0.25 mg tablet (Xanax) 0.25 mg PO TID PRN anxiety #90 tabs 06/22/20 03/06/23 Rx medical cannabis See Rx Instructions .Route .COMPLEX 01/16/22 03/06/23 History aripiprazole 5 mg tablet (Abilify) 5 mg PO DAILY #90 tabs 05/31/22 03/06/23 Rx bupropion HCl 200 mg tablet,12 hr 200 mg PO BID #180 tabs 05/31/22 03/06/23 Rx sustained-release (Wellbutrin SR) lisinopril 20 mg tablet 20 mg PO DAILY #90 tabs 05/31/22 03/06/23 Rx cetirizine 10 mg tablet (Zyrtec) 10 mg PO DAILY PRN allergy 09/10/22 03/06/23 Rx symptoms #90 tabs cholecalciferol (vitamin D3) 1,250 50,000 unit PO WEEKLY #12 caps 01/30/23 03/06/23 Rx mcg (50,000 unit) capsule fluticasone propionate 50 1 spray intranasal BID #16 grams 01/30/23 03/06/23 Rx mcg/actuation nasal spray,suspension (Flonase Allergy Relief) omeprazole 20 mg capsule,delayed 20 mg PO DAILY #90 caps 01/30/23 03/06/23 Rx release sertraline 100 mg tablet 50 mg PO . Q.h.s. #90 tabs 01/30/23 03/06/23 Rx Patient hx anesthesia problems: none Family hx anesthesia problems: none Results Review: All pre-operative results and documents have been reviewed as part of the pre-operative evaluation. [facility] Past Medical History Medical History (Updated 03/27/23 @ 08:25 by Vikki Wong, POUL[employer] HUSBANDRY WORKER) Abdominal pain Abnormal fasting glucose Glucose 105 with hemoglobin A1c 5.4 on 01/03/2022. Fasting glucose 99 with hemoglobin A1c 5.5 on 07/04/2022. Glucose 105 with hemoglobin A1c 5.3 on 01/21/2023. Acute non-recurrent maxillary sinusitis Acute pericarditis Allergic contact dermatitis due to plant BMI 37.0-37.9, adult BMI 38.0-38.9,adult BMI 39.0-39.9,adult Breast cancer screening by mammogram Cellulitis and abscess of hand delivery delivered Chest pain Chest pain Chronic anxiety Chronic depression Chronic low back pain without sciatica X-ray of the lumbar spine on 01/30/2023 reveals preserved disc space [id number] facet arthropathy. Chronic pain of left knee X-ray of the left knee on 01/30/2023 reveals minimal osteoarthritis. Colon cancer screening Encounter for wellness examination in adult Essential (primary) hypertension Fatigue Fever GERD (gastroesophageal reflux disease) Insomnia Migraine without aura and responsive to treatment Mixed hyperlipidemia Total cholesterol 248, triglycerides 58, HDL 114, LDL 120 on 01/03/2022. Total cholesterol 248, triglycerides 58, HDL excellent at 114 with LDL 120 and ratio of 2.2 on 07/04/2022. Cholesterol 253, triglycerides 125, HDL 89, LDL 139 with ratio 2.8 on 01/21/2023. Motion sickness Obesity (BMI 35.0-39.9 without comorbidity) Obstructive sleep apnea failure on CPAP. Hemoglobin 12.8 on 01/03/2022. ERMELINDA on CPAP Restless legs syndrome Iron normal at Sixty-six with 17% saturation and ferritin at 39 on 01/03/2022. iron 97, 24% saturation, ferritin 60 on 07/04/2022. Iron level 97 with 24% saturation and ferritin 60 on 01/21/2023. Seasonal allergic rhinitis Immanuelio
--- NOTE | 2023-04-02 11:11 | PM.HPGS ---
History of Present Illness History of Present Illness Consent: Risks, benefits, and alternatives have been discussed and questions answered. Patient agrees to proceed with procedure. Chief complaint: neoplasm screening Narrative: Marilynn Chatterjee is a 63 year old female here for screening colonoscopy, last one at least 10 years ago Review of Systems Constitutional: Constitutional: Denies headache(s) and Denies weakness Eyes: Eyes: Denies blurry vision ENT: Reports Normal hearing present, Denies headache(s) and Denies neck pain Cardiovascular: Cardiovascular: Denies chest pain and Denies dyspnea Respiratory: Respiratory: Denies dyspnea Gastrointestinal: Gastrointestinal: Reports no additional gastrointestinal complaints Genitourinary: Genitourinary: Denies dysuria Musculoskeletal: Musculoskeletal: Denies neck pain Integumentary/Breasts: Skin/Breast: Denies dry skin Neurologic: Reports Normal hearing present, Denies headache(s) and Denies weakness Psychiatric: Psychiatric: Denies anxiety Endocrine: Endocrine: Denies change in body appearance Hematologic/Lymphatic: Hematologic/Lymphatic: Denies easy bleeding Allergic/Immunologic: Allergic/Immunologic: Denies urticaria [facility] Past Medical History Medical History (Updated 03/27/23 @ 08:25 by Vikki Wong, KYLE) Abdominal pain Abnormal fasting glucose Glucose 105 with hemoglobin A1c 5.4 on 01/03/2022. Fasting glucose 99 with hemoglobin A1c 5.5 on 07/04/2022. Glucose 105 with hemoglobin A1c 5.3 on 01/21/2023. Acute non-recurrent maxillary sinusitis Acute pericarditis Allergic contact dermatitis due to plant BMI 37.0-37.9, adult BMI 38.0-38.9,adult BMI 39.0-39.9,adult Breast cancer screening by mammogram Cellulitis and abscess of hand delivery delivered Chest pain Chest pain Chronic anxiety Chronic depression Chronic low back pain without sciatica X-ray of the lumbar spine on 01/30/2023 reveals preserved disc space [id number] facet arthropathy. Chronic pain of left knee X-ray of the left knee on 01/30/2023 reveals minimal osteoarthritis. Colon cancer screening Encounter for wellness examination in adult Essential (primary) hypertension Fatigue Fever GERD (gastroesophageal reflux disease) Insomnia Migraine without aura and responsive to treatment Mixed hyperlipidemia Total cholesterol 248, triglycerides 58, HDL 114, LDL 120 on 01/03/2022. Total cholesterol 248, triglycerides 58, HDL excellent at 114 with LDL 120 and ratio of 2.2 on 07/04/2022. Cholesterol 253, triglycerides 125, HDL 89, LDL 139 with ratio 2.8 on 01/21/2023. Motion sickness Obesity (BMI 35.0-39.9 without comorbidity) Obstructive sleep apnea failure on CPAP. Hemoglobin 12.8 on 01/03/2022. ERMELINDA on CPAP Restless legs syndrome Iron normal at Sixty-six with 17% saturation and ferritin at 39 on 01/03/2022. iron 97, 24% saturation, ferritin 60 on 07/04/2022. Iron level 97 with 24% saturation and ferritin 60 on 01/21/2023. Seasonal allergic rhinitis Tension headache, chronic UTI (urinary tract infection) Viral syndrome Visual changes Vitamin B12 deficiency anemia Level low at 258 with goal greater than 400 with hemoglobin 12.8 on 01/03/2022. B12 low at 211 with folic acid 9.3 on 07/04/2022. Level low at 329 with folic acid 8.3 and hemoglobin 12.9 on 01/21/2023. Vitamin D deficiency, unspecified Level normal at 31 on 01/03/2022. Level normal at 35 on 01/21/2023. Weakness Weight loss, non-intentional Surgical History Surgical History (Updated 03/26/23 @ 13:55 by Dayanara Abernathy) H/O: hysterectomy History of ankle surgery History of bladder surgery History of cholecystectomy History of knee surgery History of shoulder surgery Family History Family History Other Unknown family medical history Social History Social History Smoking packs pe
[2023-04-02 11:33] VITALS: BP 113/80; PULSE 75; RESP 24; O2SAT 99
[2023-04-02 11:43] VITALS: BP 136/87; PULSE 70; RESP 14; O2SAT 98
[2023-04-02 11:53] VITALS: BP 145/72; PULSE 76; RESP 16; O2SAT 100
== END 2023-04-02 12:03 | disposition home or self-care (01) ==
PROVIDERS: PCP Family Medicine; Visit Provider Internal Medicine Gastroenterology
PROC: 0DJD8ZZ Inspection of Lower Intestinal Tract, Via Natural or Artificial Opening Endoscopic (ICD-10-PCS; CPT 45378; principal; 2023-04-02 11:30)
DX: Z12.11 Encounter for screening for malignant neoplasm of colon (principal); K63.3 Ulcer of intestine; K57.30 Diverticulosis of large intestine without perforation or abscess without bleeding; K64.8 Other hemorrhoids; K21.9 Gastro-esophageal reflux disease without esophagitis; I10 Essential (primary) hypertension; E78.2 Mixed hyperlipidemia; G47.33 Obstructive sleep apnea (adult) (pediatric); D51.3 Other dietary vitamin B12 deficiency anemia; F41.9 Anxiety disorder, unspecified; F32.A Depression, unspecified; E55.9 Vitamin D deficiency, unspecified; F17.210 Nicotine dependence, cigarettes, uncomplicated
CPT/HCPCS: 45380; 88305; J2704; J7120

== ENCOUNTER 2023-09-09 13:38 | Outpatient (CLI) | payer OTHER, SELFPAY ==
--- NOTE | ~2023-09-09 | MM_ITS ---
EXAMINATION: MM screening nigel BI w vahid HISTORY: Screening TECHNIQUE: Craniocaudal and mediolateral oblique 3-D tomosynthesis images were obtained and synthetic 2-D images were generated. CAD analysis was submitted and interpreted. COMPARISON: Comparison to multiple prior studies sequentially, with oldest reviewed study dated 10/11. BREAST PARENCHYMAL COMPOSITION: Not Dense: Breast are almost entirely fatty. FINDINGS: There is no evidence of suspicious mass, calcification, or architectural distortion to sugg est malignancy in either breast. There has been no suspicious interval change. IMPRESSION: 1. No mammographic evidence of malignancy. 2. Recommend routine screening mammography in one year. BI-RADS Category 1: Negative Reviewed, dictated and finalized at location B.
--- NOTE | ~2023-09-09 | DEXA_ITS ---
Bone Density Report Name: NEIDA JIMENEZ Age: 63 Sex: Female Ethnicity: White Date of : 1960 Indication: postmenopausal; screening for osteoporosis; height loss; history of glucocorticoids; hysterectomy; Referring Provider: JACKELYN ZALDIVAR Study: Bone densitometry was performed. Exam Date: September 09, 2023 Accession number: [id number] Bone Density: Region BMD T-score Z-score Classification AP Spine(L1-L4) 0.962 -0.8 0.8 Normal Femoral Neck (Left) 0.566 -2.6 -1.2 Osteoporosis Total Hip (Left) 0.925 -0.1 0.9 Normal Femoral Neck (Right) 0.550 -2.7 -1.3 Osteoporosis Total Hip (Right) 0.957 0.1 1.2 Normal Total Hip Mean 0.941 0.0 1.1 Normal World Health Organization criteria for BMD impression classify patients as: Normal (T-score at or above -1.0), Osteopenia (T-score between -1.0 and -2.5), or Osteoporosis (T-score at or below -2.5). 10-year Fracture Risk: FRAX not reported because: Some T-score for Spine Total or Hip Total or Femoral Neck at or below -2.5 Clinical Information Provided by Patient: Smokes Has taken Glucocorticoids Has the following medical conditions: Hysterectomy Patient maximum height was 64.0 Menopause Age: 35 Drinks caffeinated beverages Onset of menses at age 13 Number of children 2 Impression: The patient has osteoporosis, based on the Right Femoral Neck T-score. The patient has risk factors, including: smoking, history of glucocorticoid therapy. Discussion: INCREASED RISK OF FRACTURE. BONE DENSITY IS UNDESIRABLY LOW AT ONE OR MORE SKELETAL SITES, CONSISTENT WITH POSTMENOPAUSAL OSTEOPOROSIS. This patient's lowest T-score meets the World Health Organization's (WHO) criteria for osteoporosis at one or more sites (T-score -2.5 or below). In untreated patients, the risk of osteoporotic fracture increases approximately two-fold for each 1.0 SD decrease in T-score. Low bone density is not the only risk factor for fracture; also consider factors such as patient's age, frailty or poor health, risk of falling, risk of injury, previous osteoporotic fracture, family history of osteoporosis, cigarette smoking, low body weight, etc. Not everyone with low bone mineral density has osteoporosis; osteomalacia and other metabolic bone disorders should also be considered. Patients who have osteoporosis should be evaluated for specific diseases and conditions (secondary causes) that may cause or contribute to bone loss. The [employer] Endocrinologists (AACE) and National Osteoporosis Foundation (NOF) recommend pharmacologic intervention for all postmenopausal women whose T-score is in this range. The patient should follow a healthful lifestyle (good nutrition with adequate calcium and vitamin D, and appropriate weight-bearing exercise). Follow-Up:
== END 2023-09-09 13:39 | disposition home or self-care (01) ==
LOC: ANHIMG 13:46
PROVIDERS: PCP Family Medicine; Visit Provider Registered Nurse
DX: Z12.31 Encounter for screening mammogram for malignant neoplasm of breast (principal); Z78.0 Asymptomatic menopausal state; M81.0 Age-related osteoporosis without current pathological fracture
CPT/HCPCS: 77063; 77067; 77080

== ENCOUNTER → 2024-05-04 11:54 | Outpatient (CLI) | payer BC, SELFPAY | PROVIDERS: PCP Family Medicine; Visit Provider Family Medicine | DX: M25.562 Pain in left knee (principal); G89.29 Other chronic pain | CPT/HCPCS: 73564 ==

== ENCOUNTER 2024-10-22 15:16 | Outpatient (CLI) | payer BC, SELFPAY ==
--- NOTE | ~2024-10-22 | MM_ITS ---
EXAMINATION: MM screening nigel BI w vahid HISTORY: Screening mammogram TECHNIQUE: Craniocaudal and mediolateral oblique 3-D tomosynthesis images were obtained and synthetic 2-D images were generated. CAD analysis was submitted and interpreted. COMPARISON: 09/09/2023, 07/06/2020 BREAST PARENCHYMAL COMPOSITION:Not Dense. The breasts are almost entirely fatty FINDINGS: 4 mm mass in the subareolar right breast is present, likely seen on prior exams. Stable appearance of the left breast. No left breast mass or left breast distortion. No suspicious microcalcifications in either breast. IMPRESSION: 4 mm right breast mass, as detailed above. Spot compression views and ultrasound are recommended for further evaluation. BI-RADS Category 0: Incomplete: Needs additional imaging evaluation. Reviewed, dictated and finalized at [facility]. IMPRESSION: 4 mm right breast mass, as detailed above. Spot compression views and ultrasoun d are recommended for further evaluation. BI-RADS Category 0: Incomplete: Needs additional imaging evaluation.
== END 2024-10-22 15:17 | disposition home or self-care (01) ==
LOC: ANHFOHIMG 15:19
PROVIDERS: PCP Family Medicine; Visit Provider Family Medicine
DX: Z12.31 Encounter for screening mammogram for malignant neoplasm of breast (principal); R92.8 Other abnormal and inconclusive findings on diagnostic imaging of breast
CPT/HCPCS: 77063; 77067

== ENCOUNTER 2024-11-26 11:15 | Outpatient (CLI) | payer BC, SELFPAY ==
--- NOTE | ~2024-11-26 | MMUS_ITS ---
EXAMINATION: MM diagnostic nigel RT w vahid, US breast RT limited INDICATION: 64-year old female; BI-RADS 0, callback from screening to evaluate RIGHT breast mass. COMPARISON: 10/22/2022 TECHNIQUE: Digital breast tomosynthesis True lateral and spot compression CC and MLO views of the RIGHT breast were obtained with computer-aided detection to assist in interpretation of the study. MAMMOGRAM FINDINGS: The breasts are almost entirely fatty. A circumscribed low density mass persists in the area of concern in subareolar location at anterior third. RIGHT BREAST ULTRASOUND FINDINGS: Targeted evaluation of the area of concern was completed. There is a 0.3 x 0.2 x 0.2 cm hypoechoic circumscribed mass surrounded by echogenic halo at 12:00 location near the nipple in the RIGHT breast compatible with a probably benign mass that correlates to the area of Mammographic finding. IMPRESSION: Probably benign finding at 12:00 near the nipple in the right breast. Short-term follow-up recommended. RECOMMENDATION: 6 month follow-up diagnostic right mammogram and ultrasound of the right breast. BI-RADS 3, PROBABLY BENIGN Reviewed, dictated and finalized at location B. IMPRESSION: Probably benign finding at 12:00 near the nipple in the right breast. Short-ter m follow-up recommended. RECOMMENDATION: 6 month follow-up diagnostic right mammogram and ultrasound of the right breast . BI-RADS 3, PROBABLY BENIGN
== END 2024-11-26 11:16 | disposition home or self-care (01) ==
LOC: ANHFOHIMG 11:16
PROVIDERS: PCP Family Medicine; Visit Provider Family Medicine
DX: N63.41 Unspecified lump in right breast, subareolar (principal); R92.8 Other abnormal and inconclusive findings on diagnostic imaging of breast
CPT/HCPCS: 76642; 77061; 77065; G0279